=== PATIENT | male | born 1960 | race Caucasian/White ===

== ENCOUNTER 2018-09-26 20:19 | Emergency (ER) | payer OTHER ==
[~2018-09-26] VITALS: Ht 175.3 cm; Wt 86.4 kg
[2018-09-26] MEDS ORDERED: SOD CHLORIDE 0.9% 1,000 ML IV STA (20:21)
[2018-09-26] MEDS ORDERED: ACETAMINOPHEN 500 MG TAB PO ONE (20:30)
[2018-09-26 20:59] VITALS: Ht 175.3 cm; Wt 86.4 kg
[2018-09-26] MEDS ORDERED: ASPI325T30 PO (21:11)
[2018-09-26] MEDS ORDERED: SOD CHLORIDE 0.9% 100 ML ONE (21:22)
[2018-09-26] MEDS ORDERED: IOHEXOL 300MG/ML 150 ML BTL ONE (21:22)
[2018-09-26] MEDS ORDERED: LACTATED RINGER'S 1,000 ML IV ONE (23:00)
[2018-09-26] MEDS ORDERED: INSULIN LISPRO 100 UNIT/ML VIAL SC ONE (23:00)
[2018-09-26] MEDS ORDERED: IBUP800T48 PO (23:18)
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
[2018-09-27 00:54] VITALS: BP 185/93; PULSE 86; RESP 12
== END 2018-09-27 01:03 | disposition home or self-care (01) ==
LOC: E/R 20:19
DX: S13.9XXA Sprain of joints and ligaments of unspecified parts of neck, initial encounter (principal); E11.65 Type 2 diabetes mellitus with hyperglycemia; R82.4 Acetonuria; R10.9 Unspecified abdominal pain; R93.0 Abnormal findings on diagnostic imaging of skull and head, not elsewhere classified; V49.40XA Driver injured in collision with unspecified motor vehicles in traffic accident, initial encounter
CPT/HCPCS: 36415; 70450; 71260; 72125; 74177; 80048; 80307; 81003; 82803; 82962; 85025; 85610; 85730; 96372; 99285; J1815; J7030; J7120; Q9967